=== PATIENT | female | born 1940 | race Caucasian/White ===

== ENCOUNTER → 2024-03-25 11:18 | Outpatient (REF) | payer OTHER, SELFPAY | LOC: HWRAD 11:18 | PROVIDERS: ATTENDING PHYSICIAN Internal Medicine | DX: R06.09 Other forms of dyspnea (principal) | CPT/HCPCS: 71046 ==

== ENCOUNTER → 2024-04-08 15:56 | Outpatient (REF) | payer OTHER, SELFPAY | LOC: RCS 15:56 | PROVIDERS: ATTENDING PHYSICIAN Internal Medicine | DX: I10 Essential (primary) hypertension (principal); R06.09 Other forms of dyspnea; Z86.018 Personal history of other benign neoplasm | CPT/HCPCS: 93306 ==

== ENCOUNTER 2024-08-02 17:03 | Emergency (ER) | payer OTHER, SELFPAY ==
[2024-08-02 17:07] VITALS: BP 134/85
[2024-08-02 17:50] LABS: COVID-19 Antigen Positive (Negative)
[2024-08-02 18:29] VITALS: BMI 36.8
--- NOTE | 2024-08-02 23:11 | ED.GENMED ---
History of Present Illness
General
Chief Complaint: Fever
Source: patient and family
Exam Limitations: none
Time Seen by Provider: 08/02/24 19:23
Nursing documentation reviewed up to this point in time: agreed with
History of Present Illness
History of Present Illness:
Patient to ED wtih complaint of flu like symptoms since . Reports sorethroat, fever, fatigue, headache. No sick contacts. Brought to ED by family for eval.
Past History
Past History
ED Past Medical History: HTN and Other (Pneumonia, Bronchitis)
ED Past Surgical History: Appendectomy, Cardiac (Open heart) and Cholecystectomy
Social History
Tobacco: Non-smoker
Alcohol: Occasional
Personal:
Living: with family
Review of Systems
Review of Systems
Allergies reviewed?: Yes
All Other Systems: ROS reviewed and negative except as documented in HPI and ROS
Constitutional: Reports fever and fatigue
EENT: Reports sore throat
Respiratory: Reports cough
Cardiac: Reports no symptoms
ABD/GI: Reports no symptoms
: Reports no symptoms
Musculoskeletal: Reports no symptoms
Skin: Reports no symptoms
Neurological: Reports headache
Psychiatric: Reports no symptoms
Phy Exam
General Physical Exam
General Presentation: well appearing and no apparent distress
General age: appears stated age
General Skin: warm and dry
General Habitus: normal
General Mental: alert
General Hydration: appears well hydrated
ENT Exam
ENT Exam: EOMI, TM's normal, pharynx normal, neck supple, normocephalic and swallowing well
Cardiovascular Exam
Cardiovascular Exam: regular rate/rhythm and no edema
Pulmonary Exam
Pulmonary Exam: lungs clear, no respiratory distress and chest non tender
Gastrointestinal Exam
Gastrointestinal Exam: normal bowel sounds, non tender and soft
Musculoskeletal Exam
Musculoskeletal Exam: full ROM and neuro vasc intact
Skin Exam
Skin Exam: normal color, warm/dry and no rash
Psychiatric Exam
Psychiatric Exam: normal mood/affect
Course
Orders/Labs/Results
Orders:
Orders
08/02/24 17:11
CR Chest - 2 Views Urgent
Comment:
Reason For Exam: cough
08/02/24 17:13
COVID-19 Antigen Urgent
Source: Nasal Swab
INF RAPID [Influenza A+B Rapid Molecular] Urgent
HERVE Source: Nasal Swab
Specimen Description:
Abnormal Lab Results
08/02/24
17:13
SARS-CoV-2 Antigen Positive A
(Negative)
Vital Signs
Initial and Last Documented VS:
Initial Vital Signs
Temp Pulse Resp BP Pulse Ox
100.3 F 110 20 134/85 93
08/02/24 17:07 08/02/24 17:07 08/02/24 17:07 08/02/24 17:07 08/02/24 17:07
Last Documented Vital Signs
Temp Pulse Resp BP Pulse Ox
100.3 F 110 20 134/85 93
08/02/24 17:07 08/02/24 17:07 08/02/24 17:07 08/02/24 17:07 08/02/24 17:07
*Radiology
Radiology exam reviewed: radiology read reviewed
*Pulse Oximetry
Patient hypoxic: no
*Critical Care Note
Total Time (30-74mins, 75-104mins- exclusive of procedures): Not Applicable
ED Attending Note
-
Portions of this chart may have been created with voice recognition software.� Occasional wrong word or��sound alike� substitutions may have occurred due to the inherent limitations of voice recognition software.
Discharge Plan
Departure
Patient Disposition: Home (Routine Discharge)
Date of Disposition: 08/02/24
Time of Disposition: 19:33
Patient with high blood pressure during this ER visit?: No
Condition: Good
Covid-19: Not Applicable
Discharge Problem:
COVID-19
Instructions: Fever, Adult (DC), COVID-19 in adults - Discharge instructions, Coronavirus Home Quarantine
Prescriptions:
No Action
multivitamin 1 EACH tablet
1 1 each PO DAILY
Patient Comments:
Central vit
amlodipine [Norvasc] 5 MG tablet
5 mg PO DAILY
acetaminophen [Tylenol Extra Strength] 500 MG tablet
500 mg PO PRN PRN (Reason: pain)
valsartan-hydrochlorothiazide 1 EACH tablet
1 ea PO DAILY
albuterol sulfate 1 PUFF HFA aerosol inhaler
2 puff inhalation R Q4HPRN PRN (Reason: sob)
magnesium hydroxide 30 ML suspension
30 ml PO DAILYPRN PRN (Reason: constipation) Qty: 0 0RF
aspirin 325 MG tablet,delayed release (DR/EC)
325 mg PO DAILY Qty: 0 0RF
docusate sodium 100 MG capsule
100 mg PO BID Qty: 0 0RF
loratadine 10 MG tablet
10 mg PO DAILY Qty: 0 0RF
oxycodone 5 MG tablet
1 - 2 tab PO Q4HPRN PRN (Reason: mild pain) Qty: 90 0RF
fluconazole 150 MG tablet
150 mg PO NOW Qty: 1 0RF
miconazole nitrate 15 GM cream
1 applic TP BID Qty: 15 0RF
lisinopril-hydrochlorothiazide 20-25 mg tablet
1 tab PO DAILY Qty: 30 2RF
metoprolol succinate [Toprol XL] 25 mg tablet extended release 24 hr
25 mg PO DAILY Qty: 30 2RF
nitrofurantoin monohyd/m-cryst [Macrobid] 100 mg capsule
100 mg PO BID 5 Days Qty: 10 0RF
Referrals:
Carito Sprague MD [Family Provider] - Tomorrow
Activity Restrictions/Additional Instructions:
Return to the emergency department immediately for any changes in/worsening of your symptoms.
Interventions
Interventions:
*Risk Screen - Suicide Last Done: 08/02/24 18:29
*General Assessment Last Done: 08/02/24 17:07
*Neglect/Abuse Screening Last Done: 08/02/24 18:29
ED- Fall Risk Assessment Last Done: 08/02/24 19:39
*ED COVID-19 Vaccine History Last Done: 08/02/24 18:29
*Nursing Disposition Last Done: 08/02/24 19:39
ED- Neurological Assessment Last Done: 08/02/24 18:28
ED-Skin Assessment Last Done: 08/02/24 18:28
Discharge Date and Time
Discharge Date/Time: 08/02/24 19:40
Print Language: SET[place]
== END 2024-08-02 19:40 | disposition home or self-care (01) ==
LOC: EMR 17:03
PROVIDERS: EMERGENCY PHYSICIAN Emergency Medicine; FAMILY PHYSICIAN Internal Medicine
DX: U07.1 COVID-19 (principal); I10 Essential (primary) hypertension; Z90.49 Acquired absence of other specified parts of digestive tract
CPT/HCPCS: 99284; 71046; 87502; 87811

== ENCOUNTER 2024-09-21 20:13 | Emergency (ER) | payer OTHER, SELFPAY ==
[2024-09-21 20:15] VITALS: BP 161/101
[2024-09-21 21:39] VITALS: BMI 37.7
[2024-09-21 21:50] VITALS: BP 128/71
[2024-09-21 21:56] LABS: % Basophils 0.5 % (0-2); % Eosinophils 1.1 % (0-6); % Immature Granulocytes 0.4 % (0-0.5); % Lymphocytes 18.6 % (20.5-51.1); % Monocytes 6.4 % (1.7-9.3); Absolute Basophils 0.1 10^3/uL (0-0.2); Absolute Eosinophils 0.1 10^3/uL (0-0.7); Absolute Lymphocytes 2.1 10^3/uL (1.2-3.4); Absolute Monocytes 0.7 10^3/uL (0.1-0.6); Absolute Neutrophils 8.1 10^3/uL (1.4-6.5); Hematocrit 42.4 % (37.0-47.0); Hemoglobin 14.5 g/dL (12.0-16.0); Mean Corp Hgb Conc. 34.2 g/dL (33.0-37.0); Mean Corpuscular Hgb 30.3 pg (27.0-31.0); Mean Corpuscular Volume 88.7 fL (81.0-99.0); Mean Platelet Volume 9.9 fL (7.4-10.4); Nucleated Red Blood Cells % 0 %; Platelet Count 292 10^3/uL (130-400); Red Blood Cell Count 4.78 10^6/uL (4.20-5.40); Red Cell Dist. Width 12.2 % (11.5-14.5); White Blood Cell Count 11.1 10^3/uL (4.8-10.8)
[2024-09-21 22:00] VITALS: BP 127/66
[2024-09-21 22:23] LABS: Urine Albumin 2+ (Neg - Trace); Urine Bilirubin 3+ (Negative); Urine Character Clear (Clear); Urine Glucose Negative (Negative); Urine Ketone Negative (Negative); Urine Leukocyte Negative (Negative); Urine Nitrite Positive (Negative); Urine Occult Blood Negative (Negative); Urine Specific Gravity 1.015 (<1.030); Urine Urobilinogen 3+ (Neg - 1+)
[2024-09-21 22:30] LABS: Urine Color Orange
[2024-09-21 22:32] LABS: Urine Bacteria Few (Negative); Urine Red Blood Cell 0-2 /HPF (0-2)
[2024-09-21 22:45] LABS: ALT (SGPT) 29 U/L (0-35); AST (SGOT) 26 U/L (14-36); Albumin 4.2 g/dl (3.5-5.0); Alkaline Phosphatase 106 U/L (38-126); Blood Urea Nitrogen 20 mg/dl (7-17); Carbon Dioxide 28 mmol/L (22-30); Chloride 99 mmol/L (98-107); Estimated Creatinine Clearance 60 ml/min; Glucose 109 mg/dl (70-99); Potassium 3.2 mmol/L (3.5-5.1); Sodium 136 mmol/L (135-145); Total Bilirubin 1.1 mg/dl (0.2-1.3); Total Protein 6.9 g/dl (6.3-8.2); eGFR > 60.00
[2024-09-21 23:00] VITALS: BP 138/68
--- NOTE | 2024-09-21 23:31 | ED.GENMED ---
History of Present Illness
General
Chief Complaint: Urinary Symptoms
Source: patient
Exam Limitations: none
Time Seen by Provider: 09/21/24 21:08
Nursing documentation reviewed up to this point in time: agreed with
History of Present Illness
History of Present Illness:
Patient to ED with complaint of dysuria. Symptoms x 2 days. Denies fever/chills. No n/v. +diarrhea. Brought to ED by spouse for evl
Past History
Past History
ED Past Medical History: HTN and Other (Pneumonia, Bronchitis)
ED Past Surgical History: Appendectomy, Cardiac (Open heart) and Cholecystectomy
Social History
Tobacco: Non-smoker
Alcohol: Occasional
Personal:
Living: with family
Review of Systems
Review of Systems
Allergies reviewed?: Yes
All Other Systems: ROS reviewed and negative except as documented in HPI and ROS
Constitutional: Reports no symptoms
EENT: Reports no symptoms
Respiratory: Reports no symptoms
Cardiac: Reports no symptoms
ABD/GI: Reports diarrhea
: Reports dysuria, frequency and urgency
Musculoskeletal: Reports no symptoms
Skin: Reports no symptoms
Neurological: Reports no symptoms
Psychiatric: Reports no symptoms
Phy Exam
General Physical Exam
General Presentation: well appearing and no apparent distress
General age: appears stated age
General Skin: warm and dry
General Habitus: normal
General Mental: alert
Cardiovascular Exam
Cardiovascular Exam: regular rate/rhythm
Pulmonary Exam
Pulmonary Exam: lungs clear and no respiratory distress
Gastrointestinal Exam
Gastrointestinal Exam: normal bowel sounds, soft, no organomegaly, no pulsatile mass, non distended and no cva tenderness
Palpation: left lower quadrant: Mild tenderness and right lower quadrant: Mild tenderness
Musculoskeletal Exam
Musculoskeletal Exam: full ROM and neuro vasc intact
Skin Exam
Skin Exam: normal color, warm/dry and no rash
Psychiatric Exam
Psychiatric Exam: normal mood/affect
Course
Orders/Labs/Results
Orders:
Orders
09/21/24 21:47
Complete Blood Count/With Diff Urgent
Urinalysis Reflex To Culture Urgent
Date Specimen was Collected: 09/21/24
Time Specimen was Collected: 21:38
Urine Microscopic Reflex Cult Urgent
Urine Culture Urgent
[facility]E Source: U
Specimen Description:
Date Specimen was Collected: 09/21/24
Time Specimen was Collected: 21:38
09/21/24 22:17
Comprehensive Metabolic Panel Urgent
Comment: REDRAW
09/21/24 22:57
CT Abd/pelvis W Iv Cont Urgent
Comment:
Reason For Exam: lower abd. pain
09/22/24 00:19
Fosfomycin [Monurol] 3 gm PO ONCE ONE
09/22/24 00:27
Acetaminophen [Tylenol] 650 mg PO NOW STA
Abnormal Lab Results
09/21/24 09/21/24
21:47 22:17
WBC 11.1 H 10^3/uL
(4.8-10.8)
Absolute Neuts (auto) 8.1 H 10^3/uL
(1.4-6.5)
Absolute Monos (auto) 0.7 H 10^3/uL
(0.1-0.6)
Lymphocytes % 18.6 L %
(20.5-51.1)
Potassium 3.2 L mmol/L
(3.5-5.1)
BUN 20 H mg/dl
(7-17)
Glucose 109 H mg/dl
(70-99)
Urine Nitrite (Reflex) Positive A
(Negative)
Urine Bilirubin 3+ A
(Negative)
Urine Urobilinogen 3+ A
(Neg - 1+)
Urine Bacteria (Reflex) Few A
(Negative)
Urine Albumin (Reflex) 2+ A
(Neg - Trace)
09/21/24 21:47
09/21/24 22:17
Vital Signs
Initial and Last Documented VS:
Initial Vital Signs
Temp Pulse Resp BP Pulse Ox
98.3 F 99 18 161/101 95
09/21/24 20:15 09/21/24 20:15 09/21/24 20:15 09/21/24 20:15 09/21/24 20:15
Last Documented Vital Signs
Temp Pulse Resp BP Pulse Ox
98.6 F 80 22 145/78 92
09/22/24 00:50 09/22/24 00:50 09/22/24 00:50 09/22/24 00:51 09/22/24 00:52
*Radiology
Radiology exam reviewed: radiology read reviewed
*Pulse Oximetry
Patient hypoxic: no
*Critical Care Note
Total Time (30-74mins, 75-104mins- exclusive of procedures): Not Applicable
Update Note
Update Note:
Labs, CT report reviewed with patient and spouse. UA +nitrates. WBC only 3-5. Urine culture pending. WIll treat in dept tonight as patient is so symptomatic for UTI. She was given instructions on s/s to return to ED and she is agreeable to plan.
WIll discharge home with spouse, follow up wt PCP in AM
ED Attending Note
-
Portions of this chart may have been created with voice recognition software.� Occasional wrong word or��sound alike� substitutions may have occurred due to the inherent limitations of voice recognition software.
Discharge Plan
Departure
Patient Disposition: Home (Routine Discharge)
Date of Disposition: 09/22/24
Time of Disposition: 00:25
Patient with high blood pressure during this ER visit?: No
Condition: Good
Covid-19: Not Applicable
Discharge Problem:
Dysuria
Instructions: Urinary tract infection in adults - ED discharge instructions
Prescriptions:
No Action
multivitamin 1 EACH tablet
1 1 each PO DAILY
Patient Comments:
Central vit
amlodipine [Norvasc] 5 MG tablet
5 mg PO DAILY
acetaminophen [Tylenol Extra Strength] 500 MG tablet
500 mg PO PRN PRN (Reason: pain)
valsartan-hydrochlorothiazide 1 EACH tablet
1 ea PO DAILY
albuterol sulfate 1 PUFF HFA aerosol inhaler
2 puff inhalation R Q4HPRN PRN (Reason: sob)
magnesium hydroxide 30 ML suspension
30 ml PO DAILYPRN PRN (Reason: constipation) Qty: 0 0RF
aspirin 325 MG tablet,delayed release (DR/EC)
325 mg PO DAILY Qty: 0 0RF
docusate sodium 100 MG capsule
100 mg PO BID Qty: 0 0RF
loratadine 10 MG tablet
10 mg PO DAILY Qty: 0 0RF
oxycodone 5 MG tablet
1 - 2 tab PO Q4HPRN PRN (Reason: mild pain) Qty: 90 0RF
fluconazole 150 MG tablet
150 mg PO NOW Qty: 1 0RF
miconazole nitrate 15 GM cream
1 applic TP BID Qty: 15 0RF
lisinopril-hydrochlorothiazide 20-25 mg tablet
1 tab PO DAILY Qty: 30 2RF
metoprolol succinate [Toprol XL] 25 mg tablet extended release 24 hr
25 mg PO DAILY Qty: 30 2RF
nitrofurantoin monohyd/m-cryst [Macrobid] 100 mg capsule
100 mg PO BID 5 Days Qty: 10 0RF
Referrals:
Carito Sprague MD [Family Provider] - Follow up in 2-3 days
Activity Restrictions/Additional Instructions:
Return to the emergency department immediately for any changes in/worsening of your symptoms.
Interventions
Interventions:
*Risk Screen - Suicide Last Done: 09/21/24 20:15
*General Assessment Last Done: 09/21/24 20:15
*Neglect/Abuse Screening Last Done: 09/21/24 20:15
ED- Fall Risk Assessment Last Done: 09/21/24 21:39
*ED COVID-19 Vaccine History Last Done: 09/21/24 21:39
*Nursing Disposition Last Done: 09/22/24 00:55
ED-Female Genitourinary Assessment Last Done: 09/21/24 21:46
Discharge Date and Time
Discharge Date/Time: 09/22/24 00:55
Print Language: [place]
[2024-09-22 00:15] VITALS: BP 113/81
[2024-09-22 00:50] VITALS: BP 113/81
[2024-09-22 00:51] VITALS: BP 145/78
[2024-09-22] MEDS: MONUROL 3 GM PO (00:52)
[2024-09-22] MEDS: TYLENOL 650 MG PO (00:54)
== END 2024-09-22 00:55 | disposition home or self-care (01) ==
LOC: EMR 20:13
PROVIDERS: Nurse Practitioner; EMERGENCY PHYSICIAN Emergency Medicine; FAMILY PHYSICIAN Internal Medicine
DX: N39.0 Urinary tract infection, site not specified (principal); I10 Essential (primary) hypertension; Z90.49 Acquired absence of other specified parts of digestive tract
CPT/HCPCS: 99284; 74177; 80053; 81003; 81015; 85025; 87086; Q9967

== ENCOUNTER → 2024-10-14 08:39 | Outpatient (REF) | payer OTHER, SELFPAY | LOC: PET 08:39 | PROVIDERS: ATTENDING PHYSICIAN Internal Medicine | DX: R91.1 Solitary pulmonary nodule (principal) | CPT/HCPCS: 78815; A9552 ==